=== PATIENT | female | born 1975 | race Caucasian/White ===

== ENCOUNTER → 2022-05-08 | Outpatient (CLI) | payer OTHER, SELFPAY ==
--- NOTE | 2022-05-08 | IMM_PTH ---
PATIENT: LUKE BLAS LOC: [facility] U#:[id number] AGE/SX: 46/F ROOM: RE05/08/[address]: Dr. Lon Davey MD : 1975 BED: DIS: 05/08/2022 SPEC #: [id number] RECD: 05/10/22 11:29 STATUS: JOANN RERakesh #: [id number] DARRELL: 05/08/22 00:[address]: Lon Davey DEPT: IMMUNOHISTOCHEMISTRY RECD BY: Dhruv Patel ENTERED: 05/10/22 11:31 SP TYPE: IMMUNO OTHR DR: Dr. Darren Melara MD Tissues: Right breast, NOS Procedures: CALPONIN-1 (add) CK5-6 (add) CK8 (add) LEARY-2 (add) E-CAD (add) HER2 ARACELIS (add) KI-67 (add) P53 (add) TN (add) P40 (add) ER (initial) PHYSICIAN & INSTITUTION [address] [address] SPECIMEN INFORMATION: Tissue Source: Right breast Clinical Info: Abnormal breast ultrasound, right breast Specimen Number: [id number] CPT code: 70379, 81571 x3, 96179z3 METHODOLOGY: Deparaffinized sections of prefer/formalin-fixed tissue or PAP/DQ stained slides are incubated with monoclonal/polyclonal antibodies/oligonucleotide probes. Localization is made via biotin free immunoperoxidase method. Appropriate controls are performed and reacted as expected. Results on target cell population are indicated in the following table: RESULTS: ANTIBODY / CLONE RESULT P53 (DO-7) positive, 5% Ki-67 (30-9) positive, 40% CK8 (87hllcX81) positive CK5-6 (D5 & 1684) negative Calponin-1 (IR464F) negative P40 (BC28) negative E-Cad (ECH-6) positive LEARY-2 (SP21) positive, dim MORPHOMETRIC ANALYSIS ER (clone 6F11) >95%, strong TN (clone 16/1E2) >95%, strong Her-2Neu (clone CB11) 0 The prognostic test for HER2 is performed on formalin-fixed paraffin embedded tissue. A 3+ (positive) staining pattern is defined as intense, homogeneous, complete, circumferential membranous staining in >10% of contiguous tumor cells. A similar weak (2+) staining pattern is interpreted as equivocal. LUIS FERNANDO follow-up testing is recommended for all equivocal cases. Positivity/negativity for ER/TN is reported if > or < 1% of the tumor cells are immuno- reactive, respectively. The ASCO/CAP criteria is used for scoring. Reference: Journal of Clinical Oncology, 2013; 31:0588-6736 & 2010; 16:1877-5588. Duration of fixation: 31.5 Hrs; Sample Adequate: Yes. These assays have not been validated on decalcified tissues. Results should be interpreted with caution given the likelihood of false negativity on decalcified specimens. These tests were developed and their performance characteristics determined by [facility]. They may not have been cleared or approved by the U.S. Food and Drug Administration. The FDA has determined that such clearance or approval is not necessary. The above immunohistochemical/dualISH markers are ordered and reviewed by the Pathologist. INTERPRETATION: Right breast, core biopsy: Invasive ductal carcinoma, nuclear grade 2. Positive for estrogen receptors (favorable prognostic indicator). Positive for progesterone receptors (favorable prognostic indicator). Negative for overexpression of TVJ4gbk. AM:susan 05/13/2022
--- NOTE | 2022-05-08 | BRBX_PTH ---
PATIENT: LUKE BLAS LOC: [facility] U#:[id number] AGE/SX: 46/F ROOM: RE05/08/[address]: Dr. Lon Davey MD : 1975 BED: DIS: 05/08/2022 SPEC #: [id number] RECD: 05/08/22 13:13 STATUS: JOANN YUEN #: [id number] DARRELL: 05/08/22 00:[address]: Lon Davey DEPT: SURGICAL PATHOLOGY RECD BY: Cyril Santos ENTERED: 05/09/22 08:49 SP TYPE: BREAST BX OTHR DR: Dr. Darren Melara MD Tissues: Right breast, NOS Procedures: Surgery Specimen Level IV HEADER OPERATION: Right breast biopsy PRE-OP DIAGNOSIS: Abnormal breast ultrasound, right breast TISSUE SUBMITTED: Right breast tissue MICROSCOPIC DIAGNOSIS Right breast, ultrasound guided core biopsy: Invasive ductal carcinoma with the following characteristics: Nuclear grade ? 2/3 Maximal length ? 3.0mm See Comment. AM:am 05/10/2022 COMMENT Immunohistochemistry ([id number]) supports the diagnosis. Case has been reviewed in consultation with Dr. Tolentino who concurs with the above diagnosis. IDC:PAVEL MICROSCOPIC DESCRIPTION Slides are reviewed. GROSS DESCRIPTION Received in fixative is one container labeled with the patient's name and designated right breast. The specimen consists of multiple elongated fragments of vidal-yellow fibroadipose tissue that in aggregate measure 2 x 0.5 x 0.1 cm. The entire specimen is submitted in one cassette. / Brodie 05/09/22 TC:0 CPT: 16271 ADDENDUM ADDENDUM ADDENDUM ADDENDUM ADDENDUM ADDENDUM ADDENDUM ADDENDUM 06/17/2022 09:55 ADDENDUM 06/17/2022 09:55 ADDENDUM 06/17/2022 09:55 ADDENDUM 06/17/2022 09:55 ADDENDUM 06/17/2022 09:55 An order for Oncotype testing was received from Dr. Gilbert. This necessitated case review, block and slide selection by pathologist at [facility]. Breast Cancer Recurrence Score = 11 Results of the complete Oncotype testing ([employer] report) are viewable in EMR under: Reports - Pathology - Lab Pathology Report, Scanned.
--- NOTE | 2022-05-08 12:58 | US_ITS ---
STUDY: ULTRASOUND BREAST - LEFT REASON FOR EXAM: Female, 46 years old. Palpable mass TECHNIQUE: Axial and longitudinal images of the LEFT breast were performed with a high resolution ultrasound transducer. # OF IMAGES: 54 COMPARISON: None. FINDINGS: LEFT Breast: Heterogeneous background echotexture. At 3 o''clock, 4 cm from nipple, ultrasound confirms a 5 mm oval parallel circumscribed anechoic mass with no posterior features consistent with a small cyst.: US/Breast Limited Unilateral IMPRESSION: Ultrasound confirms a 5 mm cyst in the lateral left breast. ASSESSMENT CATEGORY: BIRADS Category 2: Benign. A letter regarding these results will be sent to the patient by the facility within 30 days. Electronically Signed: Matthew Mckeon MD at 14:07 EDT ,
--- NOTE | 2022-05-08 12:58 | BI_ITS ---
MAMMOGRAPHY - UNILATERAL DIAGNOSTIC: RIGHT BREAST REASON FOR EXAM: Female, 46 years old. RIGHT post breast biopsy CLIP PLACEMENT PERTINENT HISTORY: Non-contributory. TECHNIQUE: Digital examination. Mediolateral oblique (MLO) and craniocaudad (CC) views of the breast were obtained. CAD: CAD was performed on this study. COMPARISON: None. FINDINGS: Breast Composition: The breasts are heterogeneously dense, which may obscure small masses. There are no dominant masses or suspicious calcifications. Status post biopsy in the upper inner quadrant of the right breast with a marking clip. BI/DIAG MAMM W/CAD, UNILAT IMPRESSION: Status post biopsy the upper inner quadrant right breast with presence of a marking clip. Approximately 10% of breast cancers are not detected by mammography. A normal mammogram should not delay biopsy of a clinically suspicious abnormality. Electronically Signed: Matthew Mckeon MD at 14:06 EDT ,
== END | disposition home or self-care (01) ==
PROVIDERS: PCP Family Medicine; Visit Provider Surgery
DX: C50.911 Malignant neoplasm of unspecified site of right female breast (principal); Z92.89 Personal history of other medical treatment
CPT/HCPCS: 76642; 77065; 88305; 88341; 88342

== ENCOUNTER → 2022-05-15 | Outpatient (CLI) | payer OTHER, SELFPAY ==
--- NOTE | 2022-05-15 13:49 | MRI_ITS ---
STUDY: BILATERAL BREAST MR WITHOUT AND WITH CONTRAST REASON FOR EXAM: Female, 46 years old. Invasive ductal carcinoma of the right breast. TECHNIQUE: Multi-sequence multi-echo imaging of both breasts was performed with a dedicated breast coil. T1-weighted and T2-weighted images were performed before the administration of contrast. T1-weighted images were also performed after the administration of 15 ML IV CLARISCAN without complications. COMPARISON: Bilateral mammograms dated 04/24/2022, bilateral breast ultrasound images dated 05/08/2022, ultrasound-guided biopsy images and right diagnostic mammogram dated 05/08/2022. FINDINGS: RIGHT BREAST: The breast tissue is heterogeneously dense with minimal background enhancement. 9 mm x 8 mm x 9 mm irregular enhancing mass at the 12 o''clock position of the right breast corresponding to the ultrasonographic findings. Tissue clip marker just inferior and with in the edge of the lesion. LEFT BREAST: The breast tissue is heterogeneously dense with minimal background enhancement. There are no abnormal enhancing masses or areas of non-mass enhancement in the left breast. There are no enlarged or abnormal lymph nodes. There is no abnormality in the visualized regions of the chest or liver. MRI/Breast Bilateral W/O and W IMPRESSION: 9 mm x 8 mm x 9 mm irregular enhancing mass at the 12 o''clock position of the right breast corresponding to the ultrasonographic findings and representing the index lesion. No other abnormality of the breast MRI with contrast. CATEGORY: BIRADS Category 6: Known Biopsy-Proven Malignancy - Appropriate Action Should Be Taken. A letter regarding these results will be sent to the patient by the facility within 30 days. Electronically Signed: Joe Arenas, at 10:12 EDT ,
== END | disposition home or self-care (01) ==
PROVIDERS: PCP Family Medicine; Visit Provider Surgery
DX: C50.919 Malignant neoplasm of unspecified site of unspecified female breast (principal)
CPT/HCPCS: 77049; A9575; A4216; C8908

== ENCOUNTER 2022-05-22 07:12 | Day surgery (SDC) | payer OTHER, SELFPAY ==
--- NOTE | 2022-05-17 12:13 | RAD_ITS ---
STUDY: X-RAY CHEST REASON FOR EXAM: Female, 46 years old. PREOP BREAST CANCER RIGHT TECHNIQUE: PA and lateral views of the chest. COMPARISON: None. FINDINGS: There is a subtle radiopaque marker overlying the midline right breast tissue. The lungs are clear and expanded. There is no demonstrated pleural abnormality. Normal size heart. Normal mediastinum and kirsty. Normal visualized pulmonary arteries. Normal visualized aortic arch and descending thoracic aorta. Normal visualized thoracic spine. Normal visualized ribs, clavicles, and shoulders. There is no demonstrated abnormality of the visualized soft tissue structures of the upper abdomen. RAD/Chest PA and Lateral IMPRESSION: Normal x-ray examination of the chest. Electronically Signed: Dot Blanton MD at 3:12 EDT ,
--- NOTE | 2022-05-17 12:13 | EKG12_ITS ---
Test Reason : PRE-OP Blood Pressure : / mmHG Vent. Rate : 074 BPM Atrial Rate : 074 BPM P-R Int : 134 ms QRS Dur : 074 ms QT Int : 380 ms P-R-T Axes : 030 -03 010 degrees QTc Int : 421 ms Normal sinus rhythm Normal ECG Confirmed by TENISHA FULTON, NUNU ([id number]), sports editor CHINTAN CHAN ([id number]) on 05/20/2022 9:34:54 AM Referred By: Lon Davey Confirmed By:KALLIE STEVEN MD
[2022-05-17 13:42] LABS: Hematocrit 41.6 % (37-47); Hemoglobin 14.2 g/dL (12.0-15.0); Mean Corp Hgb Conc 34.1 g/dL (32-36); Mean Corpuscular Hgb 31.4 pg (27.0-32.0); Platelet Count 354 K/mm3 (150-450); RBC Distribution Width CV 11.9 % (11.6-14.6); RBC Distribution Width SD 40.3 fl (35.1-43.9); Red Blood Count 4.52 M/mm3 (4.2-5.4); White Blood Count 7.8 K/mm3 (4.4-11.0)
[2022-05-17 14:10] LABS: AST(SGOT) 8 U/L (15-37); Alanine Aminotransfer ALT/SGPT 17 U/L (13-56); Alkaline Phosphatase 64 U/L (45-117); Anion Gap 4 (5-15); BUN 16 mg/dL (7-18); BUN/Creat Ratio 19.1 RATIO (10-20); Chloride 105 mmol/L (98-107); Creatinine, Serum 0.84 mg/dL (0.55-1.02); EST Glomerular Filtration Rate 77 mL/min (>60); Est Glom Filt Rate - Afr Amer 94 mL/min (>60); Globulin 3.9 g/dL (2.2-4.2); Glucose 86 mg/dL (74-106); Potassium 3.9 mmol/L (3.5-5.1); Protein, Total 7.9 g/dL (6.4-8.2); Sodium Level 139 mmol/L (136-145)
[2022-05-22] VITALS (10 sets, daily range): BP systolic 108–120; BP diastolic 67–77; PULSE 72–85; RESP 16; TEMP 36.5–37.2; O2SAT 98–100; BMI 26.4
--- NOTE | 2022-05-22 | AXNB_PTH ---
PATIENT: LUKE BLAS LOC: [facility] [place][id number] AGE/SX: 47/F ROOM: RE05/22/[address]: Dr. Lon Davey MD : 1975 BED: DIS: 05/22/2022 SPEC #: [id number] RECD: 05/22/22 10:43 STATUS: JOANN WILFRID #: [id number] DARRELL: 05/22/22 00:[address]: Lon Davey DEPT: SURGICAL PATHOLOGY RECD BY: Renetta Cantu ENTERED: 05/22/22 11:03 SP TYPE: AX NODE BX OTHR DR: Dr. Darren Melara MD Tissues: A - Axillary lymph node, NOS B - Axillary lymph node, NOS C - Right breast, NOS Procedures: Frozen Section (charge) Frozen Section Add'l ([facility]) Surgery Specimen Level V Surgery Specimen Level HEADER OPERATION: Right breast stereotactic wire localization lumpectomy with axillary sentinel lymph node biopsy PRE-OP DIAGNOSIS: Right breast mass, abnormal right breast mammogram TISSUE SUBMITTED: A ? Right axillary sentinel lymph node, FS at 1037, B ? Right axillary sentinel lymph node, FS at 1111, C ? Right breast mass FROZEN SECTION DIAGNOSIS A. Right axillary sentinel lymph node, biopsy: One out of one lymph node negative for carcinoma. AM:susan 05/22/2022 B. Right axillary additional sentinel lymph nodes, biopsy: Three out of three lymph nodes negative for carcinoma. AM:susan 05/22/2022 Case has been reviewed in consultation with Dr. Tolentino who concurs with the above diagnosis. IDC:PAVEL MICROSCOPIC DIAGNOSIS A. Right axillary sentinel lymph node, biopsy: One lymph node, negative for metastatic carcinoma. B. Right axillary additional sentinel lymph nodes, biopsy: Three out of three lymph nodes, negative for metastatic carcinoma. A fragment of benign breast tissue with focal mild intraductal hyperplasia without atypia. See comment. C. Right breast, lumpectomy with needle localization. Invasive ductal carcinoma. See cancer summary in the comment section. :susan 05/28/2022 COMMENT INVASIVE BREAST CANCER SUMMARY: Procedure - lumpectomy with needle localization Specimen laterality - right Tumor: Site ? not specified Size ? 1.4 x 1 cm (measured microscopically) Histologic type - invasive ductal carcinoma, no special type. Histologic Grade (Alexa grade): Glandular/tubular differentiation - score 2 Nuclear pleomorphism - score 2 Mitotic count ? score 1 Overall grade - 1 (score of 5) Focality - single focus of invasive carcinoma. Ductal carcinoma in situ ? present Negative for extensive intraductal component. Size (extent) of DCIS ? DCIS comprise <5% of total tumor volume. Number of blocks with DICS ? 3 Number of blocks examined - 12 Architectural pattern ? cribriform Nuclear grade ? grade 2 Necrosis ? not identified Lobular carcinoma in situ (LCIS) ? not identified Tumor extension: Skin ? skin is not present. Nipple ? not applicable Skeletal muscle ? no skeletal muscle is present. Margins ? invasive carcinoma and ductal carcinoma in situ are 0.5 cm away from the closest anterior margin. Regional Lymph nodes: Total number of sentinel lymph nodes examined - 4 Total number of lymph nodes examined - 4 Number of lymph nodes with macrometastases, micrometastases and isolated tumor cells - 0 Treatment effect - no known presurgical therapy. Lymphvascular invasion ? not identified Dermal lymphvascular invasion ? not applicable Distant metastasis ? not applicable Additional pathologic findings ? extensive dense fibrosis. - Intraductal hyperplasia without atypia. Ancillary studies - previously performed on section of tumor ([id number] / [id number]). ER ? positive (>95%, strong) AL - positive (>95%, strong) Her2 bess ? negative (0) Microcalcifications ? present in non-neoplastic tissue. Clinical history - Please make reference to previous specimen ([id number]) right breast, ultrasound-guided core biopsy with diagnosis of ?invasive ductal carcinoma.? PATHOLOGIC STAGE: pT1c pN0(sn) pMx The above summary is in compliance with [employer] (CAP) Cancer Protocols Checklist and [place] Joint Committee on Cancer (AJCC), Staging Manual, 8th Ed. A & B. The lymph nodes are negative for metastatic carcinoma on multiple H & E levels and immuno-histochemical stains for cytokeratins ([id number]). Case has been reviewed in consultation with Dr. Salas who concurs with the above diagnosis. IDC:AM MICROSCOPIC DESCRIPTION Slides are reviewed. GROSS DESCRIPTION A. Received fresh for frozen section consultation labeled with the patient's name is a specimen designated right axillary sentinel lymph node. The specimen consists of an irregular fragment of yellow-vidal fibrofatty tissue measuring 3 x 2.5 x 1.2 cm. Dissection reveals a single lymph node measuring 2.5 x 1.5 cm. The lymph node is serially sectioned and totally submitted in two blocks for frozen section consultation. / AM: 05/22/2022 B - Received fresh for frozen section consultation labeled with the patient's name is a specimen designated right axillary additional sentinel lymph nodes. The specimen consists of two pieces of irregular vidal-yellow fibrofatty tissue measuring in aggregate 5 x 3 x 1 cm. Dissection reveals three lymph nodes each averaging 0.6 cm in greatest dimension. The entire specimen is submitted for frozen section diagnosis in three cassettes. The lymph nodes are submitted in their entirety in cassette 1. The remainder of the breast tissue is submitted in blocks 2 & 3. / AM: 05/22/2022 C - Received in fixative is one container labeled with the patient's name and designated right breast mass. The specimen consists of an oriented fragment of vidal-yellow right breast tissue measuring 6 x 5.5 x 3.5 cm and weighing 50 gm. The specimen has been oriented by the surgeon and is differentially inked as follows: anterior - yellow, posterior - black, superior - blue, inferior - green, medial - red and lateral - orange. The specimen is serially sectioned to reveal an irregular, hemorrhagic area measuring 1 x 1 x 0.8 cm and consistent with biopsy site. This site is located 0.5 cm from its closest (anterior) margin of resection. The remainder of the breast parenchyma is dense, white in color. No distinct mass lesions are identified. Front Office Manager sections are submitted as follows: 1 & 2 - perpendicular margins, 4-6 - biopsy cavity and tissue adjacent to biopsy cavity, 7-12 - ocean import representative sections of breast parenchyma away from biopsy cavity. Note, the specimen is submitted after additional fixation. / AM:susan 05/23/2022 TC:0 CPT: 64975 x2, 62319 x3, 87525, 41080 x3
--- NOTE | 2022-05-22 | IMM_PTH ---
PATIENT: LUKE BLAS LOC: [facility] – [place], [place] U#:[id number] AGE/SX: 47/F ROOM: RE05/22/[address]: Dr. Lon Davey MD : 1975 BED: DIS: 05/22/2022 SPEC #: [id number] RECD: 05/28/22 13:13 STATUS: JOANN RERakesh #: [id number] DARRELL: 05/22/22 00:[address]: Lon Davey DEPT: IMMUNOHISTOCHEMISTRY RECD BY: Renetta Cantu ENTERED: 05/28/22 13:15 SP TYPE: IMMUNO OTHR DR: Dr. Darren Melara MD Tissues: A - Axillary lymph node, NOS B - Axillary lymph node, NOS Procedures: CK7 (add) Pankeratin (initial) Pankeratin (add) PHYSICIAN & INSTITUTION [place] [address] SPECIMEN INFORMATION: Tissue Source: A ? Right axillary sentinel lymph node, B ? Right axillary additional sentinel lymph nodes Clinical Info: Right breast mass, abnormal right breast mammogram Specimen Number: [id number] A1, A2 & B1 CPT code: 71388 x2, 60891 x4 METHODOLOGY: Deparaffinized sections of prefer/formalin-fixed tissue or PAP/DQ stained slides are incubated with monoclonal/polyclonal antibodies/oligonucleotide probes. Localization is made via biotin free immunoperoxidase method. Appropriate controls are performed and reacted as expected. Results on target cell population are indicated in the following table: RESULTS: ANTIBODY / CLONE RESULT Block A1 AE1-3 (AE1/AE3/PCK26) negative CK7 (OV-TL12/30) negative Block A2 AE1-3 (AE1/AE3/PCK26) negative CK7 (OV-TL12/30) negative Block B1 AE1-3 (AE1/AE3/PCK26) negative CK7 (OV-TL12/30) negative These tests were developed and their performance characteristics determined by [facility]. They may not have been cleared or approved by the U.S. Food and Drug Administration. The FDA has determined that such clearance or approval is not necessary. The above immunohistochemical/dualISH markers are ordered and reviewed by the Pathologist. INTERPRETATION: A. Right axillary sentinel lymph node, biopsy: One lymph node, negative for metastatic carcinoma. B. Right axillary additional sentinel lymph nodes, biopsy: Three out of three lymph nodes, negative for metastatic carcinoma. SJ:susan 05/29/2022
--- NOTE | 2022-05-22 07:33 | PCM.HP.BLA ---
History and Physical Date of Admission: 05/22/22 No Known Allergies Allergy (Verified 05/14/22 12:23) Medications multivitamin 1 tab PO DAILY 05/08/22 [History Confirmed 05/14/22] multivitamin,Ca,mineral-folic acid-herbal no.157 400 mcg tablet ([place] Maximum Strength) 1 tab PO DAILY 05/08/22 [History Confirmed 05/14/22] PFSH Medical History?(Updated 05/14/22 @ 12:21 by Nila Flynn) Anxiety Breast cancer Left breast mass Surgical History? History of back surgery History of dilation and curettage Social History Smoking Status:? Never smoker HPI HPI HPI: LUKE BLAS, is a 46 F who presents to the office today for surgical follow-up of an ultrasound-guided needle core breast biopsy that I performed for her on May 08, 2022.? Right breast 12 o'clock position +5 cm. Right breast, ultrasound guided core biopsy: ?Invasive ductal carcinoma with the following characteristics: ?Nuclear grade ? 2/3 Maximal length ? 3.0mm RESULTS:?ANTIBODY / CLONE ? RESULT P53? (DO-7) ? positive, 5% Ki-67? (30-9)? positive, 40% CK8? ([id number])? positive CK5-6? (D5 & 1684) ? ? negative Calponin-1 (BC693J) ? ? ? negative P40? (BC28) ? negative E-Cad? (ECH-6) ? ? ? positive LEARY-2? (SP21) ? positive, dim ? MORPHOMETRIC ANALYSIS? ? ER (clone [id number])? >95%, strong WA (clone 16/1E2) ? >95%, strong Her-2Neu (clone CB11)? 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 Is patient in pain?: No Allergies No Known Allergies Allergy (Verified 05/08/22 12:53) Medications multivitamin 1 tab PO DAILY 05/08/22 [History Confirmed 05/08/22] multivitamin,Ca,mineral-folic acid-herbal no.157 400 mcg tablet ([place] Maximum Strength) 1 tab PO DAILY 05/08/22 [History Confirmed 05/08/22] Is last menstrual period known: No Post menopausal: No Patient : No PFSH Medical History?(Updated 05/08/22 @ 12:35 by Neelima Swanson) Anxiety Left breast mass Surgical History?(Updated 05/08/22 @ 12:20 by Angely Boone) History of back surgery History of dilation and curettage Social History Smoking Status:? Never smoker HPI HPI HPI: LUKE BLAS, is a 46 F who presents to the office today for patient regarding abnormal breast imaging.? The patient is referred by Dr. Sheri Abdi and a written copy of my surgical consult recommendations will return to her.? At [facility] on May 02, 2022 the patient had a right breast ultrasound performed.? At 12 o'clock position +5 cm there was felt to be an irregular hypoechoic mass measuring 1.2 x 1.2 x 1.2 cm.? Incidental note is made at the right breast 12 o'clock position 2 cm from the nipple a oval 0.8 x 0.8 x 0.5 cm structure consistent with a simple cyst.? There are no suspicious lymph nodes in the right axilla.? BI-RADS Category 4 and BI-RADS 5.? On April 24, 2022 the patient had screening bilateral mammography.? There was felt to be new architectural distortion right breast 12 o'clock position measuring 1.4 cm.The ultrasound was requested. The patient has had A1, a miscarriage in her younger years.? No live births.? Menarche at age 11.? No previous breast biopsies.? No estrogen replacement.? Family history negative for breast cancer.? She is not on chronic medications. She has had low back disc surgery which was successful. She works for the [employer]. She herself does not detect any new focal mass no nipple discharge no distortion. ROS General General: Yes fatigue; No weight change, appetite, colon cancer, breast cancer or weakness HEENT HEENT: No difficulty swallowing, eye injury, eye surgery, swollen glands or hoarseness Endo Endocrine: No thyroid disease, diabetes mellitus, thyroid cancer, Hair loss, heat intolerance or cold intolerance Breast Breast: Yes abnormal mammogram and abnormal US; No left breast lump, right breast lump, nipple discharge, breast pain or breast enlargement Musc Musculoskeletal: Yes back problems; No arthritis, rheumatoid arthritis, gout or joint pain Cardio Cardiovascular: No murmur, pacemaker, heart disease, atrial fibrillation, high blood pressure, heart attack, heart stent, palpitations, shortness of breat with exertion or chest pain Psych Psychiatric: Yes anxiety; No depression or hearing voices Resp Respiratory: No shortness of breath, No sleep apnea, No cough, No COPD, No asthma, No emphysema and No wheezing Gastro Gastrointestinal: No abdominal pain, No nausea or vomiting, No diarrhea, No constipation, No blood in stool, No acid reflux, No hemorrhoids, No ulcers, No gallbladder problem and No black,tarry stools Timbo Hematologic: No blood thinners, No blood disorders, No bleeding, No anemia and No blood clots Neuro Neurologic: No weakness Exam Const General: cooperative, healthy appearing, comfortable and no acute distress HENMT Head: normal to inspection Eyes General: appearance normal, both eyes and all related structures Neck Neck: normal visual inspection Chest Other: Right breast: Very dense cannot feel a distinct mass no nipple discharge no axillary clavicular adenopathy Left breast rubbery fibrous 1.5 cm nodule lower outer left breast 4 o'clock position +5 cm.? Nontender.? Diffuse fibrous change of the breast.? No axillary clavicular adenopathy Resp Effort & Inspection: normal respiratory effort Auscultation: clear to auscultation bilaterally Cardio Rate: regular rate Rhythm: regular rhythm GI Palpation: soft and no hepatosplenomegaly Auscultation: normal bowel sounds Musc Cervical Spine: normal cervical lordosis Skin General: no rashes or lesions noted Neuro General: patient alert, patient awake and patient oriented x3 Extrem General: no calf tenderness Psych Appearance: grossly normal Office Procedures Biopsy Provider Documentation Ultrasound-guided needle core biopsy right breast 12:00 +5 cm Timeout informed consent was obtained.? 46-year-old female was taken to the procedure room placed on the table right shoulder roll was placed.? The right breast was prepped.? Ultrasound was performed.? A vague distortion was noted at 12:00 +5 cm.? Under ultrasound guidance 1% lidocaine mixed 50-50 with 0.5% Marcaine was used as a local anesthetic.? It is of note that visualization of this area was challenging as the area was rather indistinct.? Small stab incisions created.? A 14-gauge Monopty needle was advanced to prefire depth.? Pre and post fire films were obtained.? 3 cores were obtained.? A marking clip was left in position.? The specimens were immediately transferred to formalin.? She tolerated the procedure very well. Steri-Strip Telfa OpSite dressing applied.? She was given activity and wound care instructions.? She will be scheduled for a follow-up office appointment. Lon Davey M.D., F.A.C.S. Biopsy Breast Biopsy: [id number] US Guidance Procedure Time Out Time Out Informed consent given: Yes Consent signed: Yes Time out checklist: patient, procedure, site marked/identified, positioning of patient, supplies available, allergies confirmed and team agrees on procedure Time out staff in room: Yes Time out verified: Yes Time out date: 05/08/22 Time out time: 12:00 Assessment and Plan Assessment and Plan (1) Left breast mass: ?Status:?Acute (2) Abnormal mammogram of right breast: ?Status:?Acute ? ? ? Orders: Orders Breast Limited Unilateral Today? N63.20 - Unspecified lump in the left breast, unspecified quadrant ? DIAG MAMM W/CAD, UNILAT Today? Z98.890 - Other specified postprocedural states ? Plan 46-year-old female.? She has very clinically dense breast bilaterally and imaging correlates with the same.? Fibrous dense breasts with very difficult clinical exam. I could not detect the right breast mass of imaging concern.? I did detect a fibrous rubbery lower outer left breast mass on clinical exam. We performed an ultrasound-guided core biopsy right breast 12 o'clock position +5 cm.? We will obtain right unilateral mammogram postbiopsy.? We will obtain a left lower outer breast ultrasound. The patient may be a candidate for a lower outer left breast ultrasound-guided core biopsy pending the official results.? Because of the very dense breasts I believe that the patient likely will benefit from a bilateral breast MRI as well. She has had an opportunity to ask and have questions answered.? We will pursue and expedite her care.? I appreciate the opportunity of assisting with her surgical manageme Copy: Dr. Sheri Davey M.D., F.A.C.S ROS General General: Yes fatigue; No weight change, appetite, colon cancer, breast cancer or weakness HEENT HEENT: No difficulty swallowing, eye injury, eye surgery, swollen glands or hoarseness Endo Endocrine: No thyroid disease, diabetes mellitus, thyroid cancer, Hair loss, heat intolerance or cold intolerance Breast Breast: Yes abnormal mammogram and abnormal US; No left breast lump, right breast lump, nipple discharge, breast pain or breast enlargement Musc Musculoskeletal: Yes back problems; No arthritis, rheumatoid arthritis, gout or joint pain Cardio Cardiovascular: No murmur, pacemaker, heart disease, atrial fibrillation, high blood pressure, heart attack, heart stent, palpitations, shortness of breat with exertion or chest pain Psych Psychiatric: Yes anxiety; No depression or hearing voices Resp Respiratory: No shortness of breath, No sleep apnea, No cough, No COPD, No asthma, No emphysema and No wheezing Gastro Gastrointestinal: No abdominal pain, No nausea or vomiting, No diarrhea, No constipation, No blood in stool, No acid reflux, No hemorrhoids, No ulcers, No gallbladder problem and No black,tarry stools Timbo Hematologic: No blood thinners, No blood disorders, No bleeding, No anemia and No blood clots Neuro Neurologic: No weakness Assessment and Plan Assessment and Plan (1) Breast cancer: ?Status:?Acute ?Plan: Pathology demonstrates invasive ductal carcinoma upper mid right breast 12:00 +5 cm.? I reviewed these results with her.? She is ER and WA positive.? She is perimenopausal at age 46.? We have discussed treatment options.? Primary tumor is felt to be approximately 1.2 cm.? She has extraordinarily fibrous breast.? I definitively believe that her bilateral breast MRI preoperatively would be very pertinent.? Barring any additional findings I propose for her a stereotactic wire localization right breast with nuclear tracer and blue dye right axillary sentinel lymph node biopsy and wire localized lumpectomy.? I have provided written descriptive information as well.? The patient is aware that with breast conservation surgery we would be anticipating postprocedural medical oncology and radiation oncology consultation and follow-up.? We would be anticipating right breast radiation treatment.? She has had an opportunity to ask and have questions answered.? We also discussed mastectomy with immediate or delayed reconstruction and possible reduction procedure on the left.? Clearly this is much more surgery than the proposed conservation technique.? I believe at this moment she would be a good candidate for breast conservation techniques. Subsequent to our office discussion she had a bilateral breast MRI. The MRI suggest that the disease is localized in the right breast at 12 o'clock position. The patient has elected to proceed with breast conservation surgery. Because of the density of her breast I plan a stereotactic wire localization right breast with subsequent blue dye and nuclear tracer right axillary sentinel lymph node biopsy and wire localized breast lumpectomy. Patient has had an opportunity to ask and have questions answered and concurs with this process. Copy: Dr. Darren Melara and Dr. Sheri Davey M.D., F.A.C.S May 15, 2022 STUDY: ? BILATERAL BREAST MR WITHOUT AND WITH CONTRAST REASON FOR EXAM: ? Female, 46 years old. ? Invasive ductal carcinoma of the right breast. TECHNIQUE: ? Multi-sequence multi-echo imaging of both breasts was performed with a dedicated breast coil.? T1-weighted and T2-weighted images were performed before the administration of contrast.? T1-weighted images were also performed after the administration of 15 ML IV CLARISCAN without complications. COMPARISON:? ? Bilateral mammograms dated 04/24/2022, bilateral breast ultrasound images dated 05/08/2022, ultrasound-guided biopsy images and right diagnostic mammogram dated 05/08/2022. FINDINGS: RIGHT BREAST: The breast tissue is heterogeneously dense with minimal background enhancement. 9 mm x 8 mm x 9 mm irregular enhancing mass at the 12 o''clock position of the right breast corresponding to the ultrasonographic findings.? Tissue clip marker just inferior and with in the edge of the lesion. LEFT BREAST: The breast tissue is heterogeneously dense with minimal background enhancement. There are no abnormal enhancing masses or areas of non-mass enhancement in the left breast. There are no enlarged or abnormal lymph nodes.? There is no abnormality in the visualized regions of the chest or liver. MRI/Breast Bilateral W/O and W IMPRESSION: 9 mm x 8 mm x 9 mm irregular enhancing mass at the 12 o''clock position of the right breast corresponding to the ultrasonographic findings and representing the index lesion. ? No other abnormality of the breast MRI with contrast. ? ? CATEGORY: BIRADS Category 6:? Known Biopsy-Proven Malignancy - Appropriate Action Should Be Taken.? A letter regarding these results will be sent to the patient by the facility within 30 days. ? Electronically Signed: Joe Arenas, at 10:12 EDT ,
[2022-05-22] MEDS: Lactated Ringers 1,000 ML 15 ML IV (07:35)
[2022-05-22 07:49] LABS: Internal QC Validated? YES +Cl - CLEAR BKGD; Pregnancy, Urine Negative Negative
--- NOTE | 2022-05-22 07:51 | NM_ITS ---
PROCEDURE: NUCLEAR MEDICINE Injection [place] Node - RIGHT breast(s). REASON FOR EXAM: Female, 47 years old. Right breast cancer. TECHNIQUE: [place] node localization using radionuclide methods of the RIGHT breast(s) was performed following subcutaneous administration of 1.1 mCi of of sulfur colloid Tc-99m. NM/Lymph Node Injection Only IMPRESSION: 1.1 mCi of technetium labeled sulfur colloid was injected subcutaneously in 4 equal aliquots in the supra-areolar region of the right breast. Electronically Signed: Yeison Contreras MD at 8:52 EDT ,
--- NOTE | 2022-05-22 09:09 | BI_ITS ---
SURGICAL BREAST SPECIMEN RADIOGRAPH CLINICAL: Document presence of tissue clip marker in biopsy specimen. FINDINGS: Specimen shows presence of tissue clip marker. Electronically Signed: Yeison Contreras MD at 11:49 EDT , BI/Breast Biopsy Specimen IMPRESSION: undefined
[2022-05-22] MEDS: Isosulfan Blue 1% 5 ML Vial (10:04)
[2022-05-22] MEDS: Bupivacaine 0.25% 30 ML Vial (11:23)
--- NOTE | 2022-05-22 11:31 | OP.PCM_ITS ---
Report of Operation Date of Procedure: 05/22/22 Pre-Operative Diagnosis: Upper mid right breast invasive ductal carcinoma Post-Operative Diagnosis: Same Surgery/Procedure Performed:: Stereotactic wire localization upper mid right breast with subsequently wire localized upper mid right breast lumpectomy and right axillary nuclear tracer and blue dye sentinel lymph node biopsy Description of Surgical Findings:: Timeout informed consent was obtained. The patient was taken to the stereotactic unit placed prone on the table placed in the cc view the marking clip but not density was identified stereotactic images were obtained digital information tingling and single target site breast was prepped with Betadine 1% lidocaine was used as local anesthetic 1 cc was used Kopan's needle was advanced to depth +15 mm wire was displaced on fast view demonstrated good localization sterile dressings applied. She was subsequently taken back to the holding area and then was taken from there to the operating room. She was placed upon the table underwent general anesthesia the right arm was carefully wrapped with soft roll and placed at right inguinal table. The right breast was prepped with alcohol 2 cc of isosulfan blue dye was injected and massaged for 3 minutes. The patient previously at 8:00 this morning and had nuclear tracer injected per radiology. Of the right breast and axilla were sterilely prepped and draped. An oblique in cision was made in the right axilla at the blue dye tracking identified a blue node was identified this was dissected free with sharp blunt and electrocautery dissection hemoclips were used were needed the area had a high neoprobe count took a 10-second count reinspected the axilla and found another small area of 9 blue lymph nodes that appeared to be radioactive but smaller packing is removed. The initial lymph node was sent for frozen section report returned negative for malignancy. The additional packet was sent in 3 more lymph nodes were encountered and also negative for malignancy. Where needed lymphatics were secured in the axilla with with interrupted a running 3-0 Vicryl. Hemoclips were also used. The axilla was irrigated and a gauze packing was placed. Ultrasound was performed of the upper mid right breast and the previously biopsied density identified under ultrasound guidance to Kopan's needles were placed to the lesion. Now he had 3 wires in the area 1 based upon just the marking clip from that we had been placed previously in 201 based upon ultrasound. A curvilinear incision made in the upper mid right breast electrocautery and sharp dissection formed circumferentially around the mass. It is of note that the breast tissue was extraordinarily dense and difficult to dissect. The lesion was completely dissected free. The wires were exiting anteriorly a short suture was placed superiorly and a long suture laterally. That specimen was sent for analysis the cavity was irrigated 4 small hemoclips were placed at the margins of the resection tomorrow. For radiology. Each wound was now anesthetized with 0.25% Marcaine and a total of 30 cc was used. The wounds were closed in layers with interrupted 3-0 Vicryl and the skin edges proximal and running subicular 4-0 Monocryl. Steri-Strips Telfa OpSite fluffy dressings pressure dressing applied. Sponge and instrument and needle counts reported the surgeon to be correct. Blood loss was minimal. Report revealed that the tumor measured maximum 1 cm diameter and was 0.5 cm from the closest margin. Specimen is right breast mass and initial right axillary sentinel lymph node with an additional 3 sentinel lymph nodes. Synoptic Portion: Element Response Options Operation performed with curative intent. Yes Tracer(s) used to identify sentinel nodes in the upfront surgery (non- neoadjuvant) setting (select all that apply). Dye and radioactive tracer Tracer(s) used to identify sentinel nodes in the neoadjuvant setting (select all that apply). Not applicable All nodes (colored or non-colored) present at the end of a dye-filled lymphatic channel were removed. Yes All significantly radioactive nodes were removed. Yes All palpably suspicious nodes were removed. Yes Biopsy-proven positive nodes marked with clips prior to chemotherapy were identified and removed. Not applicable Lon Davey M.D., F.A.C.S. Surgeon: Lon Davey Type of Anesthesia: General and Local Anesthesiologist: Judy Kiser
== END 2022-05-22 15:02 | disposition home or self-care (01) ==
LOC: SDC 07:14 → AC 07:14
PROVIDERS: Anesthesiology; PCP Family Medicine; Referring Provider Surgery; Visit Provider Surgery
PROC: (CPT 19301; principal; 2022-05-22 10:45)
DX: C50.411 Malignant neoplasm of upper-outer quadrant of right female breast (principal); R59.0 Localized enlarged lymph nodes
CPT/HCPCS: 19301; 38525; 00400; 19281; 36415; 38792; 71046; 76098; 80053; 81025; 85027; 88305; 88307; 88309; 88331; 88332; 88341; 88342; 93005; A9541; J2405; Q9968

== ENCOUNTER 2022-07-17 16:30 | Outpatient (RCR) | payer OTHER, SELFPAY ==
--- NOTE | 2022-06-28 11:49 | HP.OTEVAL ---
Patient's Visit Information LUKE BLAS is a 47 year old F, referred to Occupational Therapy by Dr. Lon aDvey MD, with a diagnosis of lymphatic channel dysfunction. 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 Sx 05/22/22. Radiation 07/08/22. pt states she has notices a budging under her right arm and has a pulling sensation at her elbow with arm over her head-. pt would like to know what she can do to decrease the sensation and improve her ROM. - ROM Shoulder: right 160 left 170 Elbow: right/left WNL - Lymphedema (Circumferential Measure) MCP: right 17.5cm left 17 Wrist: right 17 left 16cm Lower forearm: right 21cm left 22cm Largest forearm: right 26cm left 26cm Elbow: right 26cm left 26cm Largest humerus: right 30cm left 29cm Axcillary: right 32cm left 32cm - Goals Demonstrate adequate knowledge of self-massage by 2nd week: Yes Demonstrate adequate knowledge skin care/prec by 2nd week: Yes Demonstrate adequate knowledge therapeutic exercises by d/c: Yes Select approp compression garment w/donning/care/wear by d/c: Yes Voice need to replace compression garment every 4-6mo by dc: Yes - Rehabilitation General Assessment: pt demo with cording of right axillary area and pulling sensation at elbow - indication of signs of axillary webbing syndrome. pt would benefit from skilled OT services 2-3 visits to ensure pt reaches full ROM- ed. on lymph massage-scar massage as well as signs and symptoms of lymphedema and axillary syndrome. Today therapist review end ROM of shoulder- and external rotation- next visit therapist will initiate manual release bill. to decrease webbing symptoms. Pt demo understanding and agree to POC. Rehabilitation Potential: Excellent - Anticipated Interventions A/AAROM/PROM, Scar Care, Triggerpoint Release, Modalities, Joint Protection/Energy Conservation, Ergonomic Education, Education re Diagnosis, Manual Lymph Drainage, Education re Life-long lymphedema Management, Education re Skin Care and Precautions, Education re Self Massage Techniques, Education re Correct Donning Tech,Care&Wearing Sched Comp Garments, Home Program - Visit Plan Frequency: 1-2x /Week Duration: 4 Weeks TEXT: Thank you for the opportunity to evaluate your patient. For Medicare and Medicare HMO plans, please review the plan of care and approve it. It will need to be FAXED BACK to us at [phone] for Medicare purposes. Please let me know if there are questions or concerns regarding this plan of care. Physician Signature: Date:
--- NOTE | 2022-06-28 11:50 | HP.OTEVAL ---
Patient's Visit Information LUKE BLAS is a 47 year old F, referred to Occupational Therapy by Dr. Lon Davey MD, with a diagnosis of lymphatic channel dysfunction. 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 Sx 05/22/22. Radiation 07/08/22. pt states she has notices a budging under her right arm and has a pulling sensation at her elbow with arm over her head-. pt would like to know what she can do to decrease the sensation and improve her ROM. - ROM Shoulder: right 160 left 170 Elbow: right/left WNL - Lymphedema (Circumferential Measure) MCP: right 17.5cm left 17 Wrist: right 17 left 16cm Lower forearm: right 21cm left 22cm Largest forearm: right 26cm left 26cm Elbow: right 26cm left 26cm Largest humerus: right 30cm left 29cm Axcillary: right 32cm left 32cm - Quick DASH-Disab of Arm,Shoulder& Hand Quick DASH Score: 28.3325 - Goals Demonstrate adequate knowledge of self-massage by 2nd week: Yes Demonstrate adequate knowledge skin care/prec by 2nd week: Yes Demonstrate adequate knowledge therapeutic exercises by d/c: Yes Select approp compression garment w/donning/care/wear by d/c: Yes Voice need to replace compression garment every 4-6mo by dc: Yes - Rehabilitation General Assessment: pt demo with cording of right axillary area and pulling sensation at elbow - indication of signs of axillary webbing syndrome. pt would benefit from skilled OT services 2-3 visits to ensure pt reaches full ROM- ed. on lymph massage-scar massage as well as signs and symptoms of lymphedema and axillary syndrome. Today therapist review end ROM of shoulder- and external rotation- next visit therapist will initiate manual release bill. and massage to decrease webbing symptoms. Pt demo understanding and agree to POC. Rehabilitation Potential: Excellent - Anticipated Interventions A/AAROM/PROM, Scar Care, Triggerpoint Release, Modalities, Joint Protection/Energy Conservation, Ergonomic Education, Education re Diagnosis, Manual Lymph Drainage, Education re Life-long lymphedema Management, Education re Skin Care and Precautions, Education re Self Massage Techniques, Education re Correct Donning Tech,Care&Wearing Sched Comp Garments, Home Program - Visit Plan Frequency: 1-2x /Week Duration: 4 Weeks TEXT: Thank you for the opportunity to evaluate your patient. For Medicare and Medicare HMO plans, please review the plan of care and approve it. It will need to be FAXED BACK to us at [phone] for Medicare purposes. Please let me know if there are questions or concerns regarding this plan of care. Physician Signature: Date:
--- NOTE | 2022-07-17 16:42 | HP.OTDCSUM ---
It has been my pleasure to treat LUKE BLAS under orders from Dr. Lon Davey MD, for the diagnosis of lymphatic channel dysfunction for a total of 3 visit(s). Please see the following information for a summary of their discharge status. % Improvement: 95 Objective/Function: pt demo full ROM of right UE. denies symptoms of tingling/ burning around elbow or in hand- pt communicates understanding of her HEP and will reach out if she has questions- or concerns. pt agrees with d.c. Patient Goals: Regain Mobility, Increase ROM, Learn how to Manage Lymphedema, Learn how to Apply Compression Stockings Demonstrate adequate knowledge of self-massage by 2nd week: Yes Demonstrate adequate knowledge skin care/prec by 2nd week: Yes Demonstrate adequate knowledge therapeutic exercises by d/c: Yes Select approp compression garment w/donning/care/wear by d/c: Yes Voice need to replace compression garment every 4-6mo by dc: Yes Discharge Comments: pt was seen for 3 OT visits and instructed in HEP- pt has met OT goals and is d.c at this itme. If there are questions or concerns regarding this patient's occupational therapy, please fell free to call me at [phone]. Thank you for the referral of this patient. Sincerely, Josefa Santiago, OTR/L, CHT
== END 2022-07-17 19:00 | disposition home or self-care (01) ==
LOC: OT 16:30
PROVIDERS: PCP Family Medicine; Referring Provider Surgery; Visit Provider Surgery
DX: I89.9 Noninfective disorder of lymphatic vessels and lymph nodes, unspecified (principal)
CPT/HCPCS: 97110; 97140; 97166; 97530

== ENCOUNTER 2023-05-16 07:25 | Day surgery (SDC) | payer OTHER, SELFPAY ==
[2023-05-16 07:48] VITALS: BP 114/74; PULSE 70; RESP 16; TEMP 36.3; O2SAT 99; BMI 26.4
[2023-05-16 07:54] LABS: Internal QC Validated? YES +Cl - CLEAR BKGD; Pregnancy, Urine Negative Negative
[2023-05-16] MEDS: Lactated Ringers 1,000 ML 15 ML IV (07:59)
--- NOTE | 2023-05-16 08:44 | PCM.HP.STD ---
HPI - General General Date of Admission: 06/06/20 Date of Service: 05/16/23 Chief Complaint: Screening for intestinal cancer HPI Narrative LUKE BLAS, is a 47 F who presents who presents via open access today for screening colonoscopy. I have previously assisted her with breast cancer care. She has no current gastrointestinal symptoms. She has no family history of colon polyps or colon cancer. [facility] Medical History (Updated 05/13/23 @ 12:07 by Ashly Al) Alcohol use Anxiety Back pain Breast cancer Cancer Heartburn Left breast mass Non-smoker Wears glasses Wears partial dentures Home Medications multivitamin 1 tab PO DAILY 05/08/22 [History Last Taken Unknown] tamoxifen 20 mg tablet 20 mg PO DAILY 08/20/22 [History Last Taken Unknown] calcium gluconate 50 mg calcium tablet 50 mg PO DAILY 03/27/23 [History Last Taken Unknown] Allergy/AdvReac Type Severity Reaction Status Date / Time pollen extracts Allergy Itching Verified 05/13/23 11:59 Family History Grandmother Cancer kidney Hypertension Grandfather Hypertension Mother Diabetes Surgical History History of back surgery History of dilation and curettage History of lumpectomy of right breast (~04/2022) Social History (Updated 03/27/23 @ 10:09 by Rosetta Garcia) current occupational status: employed Smoking Status: Never smoker ROS Constitutional Constitutional: Reports systems reviewed and no addt'l complaints, except as documented Cardiovascular Cardiovascular: Denies chest pain Respiratory/Chest Respiratory/Chest: Denies shortness of breath at rest Gastrointestinal Gastrointestinal: Denies abdominal pain, change in bowel habits, hematochezia or melena Vital Signs Vital Signs Vital Signs: 05/16/23 07:48 05/16/23 07:48 Temperature 97.4 F L Temperature Source Temporal Pulse Rate 70 Respiratory Rate 16 Respiratory Pattern Normal Blood Pressure 114/74 Blood Pressure Mean 87 Blood Pressure Source Monitor Blood Pressure Position Semi-Fowlers Blood Pressure Location Left Arm Pulse Ox 99 Oxygen Delivery Method Room Air Weight Weight: 158 lb 11.725 oz Body Mass Index (BMI) 26.4 Physical Exam Const alert, oriented x3 and no apparent distress General Appearance: cooperative and comfortable Eyes General Eye: normal appearance of both eyes Neck General: normal visual inspection Chest inspection of chest normal Resp Effort and Inspection: able to speak in complete sentences and symmetric chest movement Auscultation: clear to auscultation bilaterally Cardio regular rate and regular rhythm GI soft to palpation, non-tender and non-distended Extremity no calf tenderness Neuro oriented x3 Psych thought process normal Results Lab / Micro Data Labs: Laboratory Results - last 24 hr 05/16/23 07:30: Urine Test Negative Assessment & Plan Assessment/Plan (1) Encounter for screening for malignant neoplasm of colon: PLAN: Patient presents via open access today. Plan to proceed with a screening colonoscopy with possible biopsy or polypectomy as indicated. She is aware of the technique, benefit, risk, alternatives. She has had an opportunity to ask and have questions answered. We will proceed as noted. Lon Davey M.D., F.A.C.S.
[2023-05-16 09:15] VITALS: BP 114/74; BP 84/69; PULSE 77; RESP 16; TEMP 36.6; O2SAT 97
--- NOTE | 2023-05-16 09:17 | OP.COLON_ITS ---
Patient Name: Annabelle Bearden Procedure Date: 05/16/2023 8:50 AM Date of : 1975 Age: 47 Procedure: Colonoscopy Indications: Screening for colorectal malignant neoplasm Providers: Lon Davey MD Referring MD: Leon Melara Medicines: See the Anesthesia note for documentation of the administered medications Patient Profile: Last Colonoscopy: none. The patient's first colonoscopy is today. Complications: No immediate complications. Procedure: Pre-Anesthesia Assessment: - Prior to the procedure, a History and Physical was performed, and patient medications and allergies were reviewed. The patient's tolerance of previous anesthesia was also reviewed. The risks and benefits of the procedure and the sedation options and risks were discussed with the patient. All questions were answered, and informed consent was obtained. Prior Anticoagulants: The patient has taken no anticoagulant or antiplatelet agents. ASA Grade Assessment: II - A patient with mild systemic disease. After reviewing the risks and benefits, the patient was deemed in satisfactory condition to undergo the procedure. After I obtained informed consent, the scope was passed under direct vision. Throughout the procedure, the patient's blood pressure, pulse, and oxygen saturations were monitored continuously. The colonoscope was introduced through the anus and advanced to the cecum, identified by appendiceal orifice and ileocecal valve. The colonoscopy was performed without difficulty. The patient tolerated the procedure well. The quality of the bowel preparation was good. The ileocecal valve and the appendiceal orifice were photographed. Scope In: 8:58:52 AM Scope Withdrawal Time 0 hours 6 minutes 51 seconds Scope Out: 9:11:03 AM Total Procedure Duration Time 0 hours 12 minutes 11 seconds Findings: The perianal and digital rectal examinations were normal. A few diverticula were found in the sigmoid colon. The exam was otherwise without abnormality. Impression: - Diverticulosis in the sigmoid colon. - The examination was otherwise normal. - No specimens collected. Recommendation: - Discharge patient to home. - Resume previous diet. - Continue present medications. - Repeat colonoscopy in 10 years for screening purposes. Procedure Code(s): --- Professional --- 27841, Colonoscopy, flexible; diagnostic, including collection of specimen(s) by brushing or washing, when performed (separate procedure) Diagnosis Code(s): --- Professional --- Z12.11, Encounter for screening for malignant neoplasm of colon K57.30, Diverticulosis of large intestine without perforation or abscess without bleeding CPT copyright 2021 [employer]. All rights reserved. The codes documented in this report are preliminary and upon braille coder review may be revised to meet current compliance requirements. Lon Davey MD 05/16/2023 9:17:24 AM This report has been signed electronically. Number of Addenda: 0 Note Initiated On: 05/16/2023 8:50 AM
--- NOTE | 2023-05-16 09:18 | OP.CCLET_ITS ---
05/16/2023 Bala Gilbert MD [address] [place] [address] Re : Colonoscopy procedure for Annabelle Bearden Dear Dr. Gilbert This procedure was performed on Tuesday, May 16, 2023. My impressions and recommendations are as follows: Impressions : - Diverticulosis in the sigmoid colon. - The examination was otherwise normal. - No specimens collected. Recommendations : - Discharge patient to home. - Resume previous diet. - Continue present medications. - Repeat colonoscopy in 10 years for screening purposes. My findings are described in the full procedure note, which is enclosed. If I can be of further assistance, please feel free to contact me at Doctor phone number(s): Work: . Sincerely, Lon Davey MD 05/16/2023 9:17:24 AM This report has been signed electronically.
[2023-05-16 09:20] VITALS: BP 110/73; BP 114/74; PULSE 73; RESP 16; O2SAT 97
[2023-05-16 09:25] VITALS: BP 104/66; BP 114/74; PULSE 69; RESP 16; O2SAT 98
[2023-05-16 09:30] VITALS: BP 114/74; BP 93/68; PULSE 75; RESP 16; TEMP 36.9; O2SAT 97
[2023-05-16 09:53] VITALS: BP 114/74
== END 2023-05-16 10:10 | disposition home or self-care (01) ==
LOC: EN 07:27 → AC 07:28
PROVIDERS: Anesthesiology; PCP Family Medicine; Referring Provider Family Medicine; Visit Provider Surgery
PROC: 0DJD8ZZ Inspection of Lower Intestinal Tract, Via Natural or Artificial Opening Endoscopic (ICD-10-PCS; CPT 45378; principal; 2023-05-16 08:25)
DX: Z12.11 Encounter for screening for malignant neoplasm of colon (principal); K57.30 Diverticulosis of large intestine without perforation or abscess without bleeding; Z85.3 Personal history of malignant neoplasm of breast
CPT/HCPCS: 45378; 81025; J7120; J2405

== ENCOUNTER → 2024-07-30 | Outpatient (CLI) | payer OTHER, SELFPAY ==
[2024-07-30 10:17] LABS: Absolute Lymphocyte Count 2.08 X10^3/uL (0.83-4.51); Absolute Neutrophil Count 3.8 X10^3/uL (2.0-7.7); Basophil# 0.03 X10^3/uL; Basophil% 0.4 % (0-1); Eosinophil# 0.27 X10^3/uL; Hematocrit 42.8 % (37-47); Hemoglobin 14.5 g/dL (12.0-15.0); Lymphocyte # 2.08 X10^3/ul (0.83-4.51); Lymphocyte % 30.9 % (19-41); Mean Corp Hgb Conc 33.9 g/dL (32-36); Mean Corpuscular Hgb 30.7 pg (27.0-32.0); Mean Corpuscular Volume 90.5 fL (81-99); Mean Platelet Vol. 9.3 fl (6.2-12.0); Monocyte# 0.57 X10^3/uL; Monocyte% 8.5 % (0-10); NRBC Flagged by Analyzer 0 % (0-5); Neutrophil # 3.77 X10^3/uL (2.7-7.7); Neutrophil % 56.1 % (47-70); Platelet Count 294 K/mm3 (150-450); RBC Distribution Width SD 39.8 fl (35.1-43.9); Red Blood Count 4.73 M/mm3 (4.2-5.4); White Blood Count 6.7 K/mm3 (4.4-11.0)
[2024-07-30 10:53] LABS: Vitamin D,25 Hydroxy 30.8 ng/mL
[2024-07-30 11:16] LABS: AST(SGOT) 12 U/L (15-37); Alanine Aminotransfer ALT/SGPT 21 U/L (13-56); Albumin, Serum 3.8 g/dL (3.2-5.0); Alkaline Phosphatase 45 U/L (45-117); Anion Gap 8 (5-15); BUN 18 mg/dL (7-18); BUN/Creat Ratio 21.7 RATIO (10-20); Calcium,Total 8.8 mg/dL (8.5-10.1); Chloride 108 mmol/L (98-107); Cholesterol 179 mg/dL (200); Creatinine, Serum 0.83 mg/dL (0.55-1.02); EST Glomerular Filtration Rate 77 mL/min (>60); Est Glom Filt Rate - Afr Amer 93 mL/min (>60); Globulin 3.9 g/dL (2.2-4.2); Glucose 96 mg/dL (74-106); High Density Lipoprotein 60 mg/dL; Potassium 3.8 mmol/L (3.5-5.1); Protein, Total 7.7 g/dL (6.4-8.2); Sodium Level 139 mmol/L (136-145); Triglycerides 145 mg/dL; Very Low Density Lipoprotein 29 mg/dL (5-40)
== END | disposition home or self-care (01) ==
PROVIDERS: PCP Family Medicine; Referring Provider Family Medicine; Visit Provider Family Medicine
DX: Z00.00 Encounter for general adult medical examination without abnormal findings (principal)
CPT/HCPCS: 36415; 80053; 80061; 82306; 84443; 85025